=== PATIENT | female | born 1965 | race Caucasian/White ===

== ENCOUNTER → 2016-11-04 | Outpatient (CLI) | payer OTHER ==
[~2016-11-04] MED LIST: ASPIRIN EC81 MG PO; IBUPROFEN400 MG PO; LIPITOR TAB 2020 MG PO; LOPRESSOR 25 MG25 MG PO; SINGULAIR10 MG PO; SYNTHROID25 MCG PO; ZYRTEC10 MG PO
== END ==
LOC: LAB 10:16
DX: D64.9 Anemia, unspecified (principal); M25.561 Pain in right knee; M65.4 Radial styloid tenosynovitis [de Quervain]; E03.9 Hypothyroidism, unspecified
CPT/HCPCS: 36415; 82607; 82728; 82746; 83540; 83550

== ENCOUNTER → 2020-10-05 | Outpatient (CLI) | payer OTHER ==
[~2020-10-05] MED LIST changes: +ALEVE220 M1 PO; +ALLER-EASE180 MG PO; +AMLODIPINE BESYL5 MG PO; +CYCLOBENZAPRINE5 MG PO; +DICLOFENAC GEL TP; +DICLOFENAC SOD100 GM TP; +DOCUSATE SODIU250 MG PO; +ENDOCET 10-3251 EACH PO; +ENDOCET 7.5-321 EACH PO; +ESCITALOPRAM OX10 MG PO; +FLONASE 0.05% N16 GM; +IBUPROFEN800 MG PO; +IMDUR ER TAB 3030 MG PO; +MIRALAX17 GM PO; +MONTELUKAST SOD10 MG PO; +MUCINEX DM ER1 EAC1 PO; +NORVASC5 MG PO; +OMEPRAZOLE20 MG PO; +PERCOCET 7.5-31 EACH PO; +PROTONIX40 MG PO; +SERTRALINE HCL50 MG PO; +ZOFRAN4 MG PO; +[UNRECOGNIZED DRUG - OTHER] PO; +[UNRECOGNIZED DRUG - OTHER] PO
== END ==
LOC: KOH-I 14:42
DX: M79.672 Pain in left foot (principal)
CPT/HCPCS: 73610; 73630

== ENCOUNTER 2020-10-10 19:53 | Emergency (ER) | payer OTHER ==
[~2020-10-10 19:53] MED LIST changes: -AMLODIPINE BESYL5 MG PO; -CYCLOBENZAPRINE5 MG PO; -DICLOFENAC GEL TP; -ENDOCET 10-3251 EACH PO; -ENDOCET 7.5-321 EACH PO; -ESCITALOPRAM OX10 MG PO; -IBUPROFEN800 MG PO; -MONTELUKAST SOD10 MG PO
[2020-10-11] MEDS ORDERED: CYCLOBENZAPRINE5 MG PO (00:36)
[2020-10-11] MEDS ORDERED: IBUPROFEN800 MG PO (00:38)
[2020-12-02] MEDS ORDERED: AMLODIPINE BESYL5 MG PO (08:58)
[2020-12-02] MEDS ORDERED: PROTONIX40 MG PO (08:59)
[2020-12-02] MEDS ORDERED: ESCITALOPRAM OX10 MG PO (08:59)
[2020-12-02] MEDS ORDERED: MONTELUKAST SOD10 MG PO (09:00)
[2020-12-02] MEDS ORDERED: ASPIRIN EC81 MG PO (09:00)
[2020-12-02] MEDS ORDERED: IBUPROFEN800 MG PO (09:01)
[2020-12-02] MEDS ORDERED: DICLOFENAC GEL TP (09:03)
[2020-12-02] MEDS ORDERED: ENDOCET 10-3251 EACH PO (10:31)
[2020-12-02] MEDS ORDERED: ENDOCET 7.5-321 EACH PO (15:30)
== END 2020-10-11 01:10 | disposition home or self-care (01) ==
LOC: ER1 19:53
DX: S40.011A Contusion of right shoulder, initial encounter (principal); I10 Essential (primary) hypertension; Z90.710 Acquired absence of both cervix and uterus; X50.0XXA Overexertion from strenuous movement or load, initial encounter
CPT/HCPCS: 73030; 73060; 99283

== ENCOUNTER → 2020-10-14 | Outpatient (CLI) | payer OTHER ==
[~2020-10-14] MED LIST changes: +AMLODIPINE BESYL5 MG PO; +CYCLOBENZAPRINE5 MG PO; +DICLOFENAC GEL TP; +ENDOCET 10-3251 EACH PO; +ENDOCET 7.5-321 EACH PO; +ESCITALOPRAM OX10 MG PO; +IBUPROFEN800 MG PO; +MONTELUKAST SOD10 MG PO
== END ==
LOC: KOH-I 14:30
DX: S92.102A Unspecified fracture of left talus, initial encounter for closed fracture (principal); W17.89XA Other fall from one level to another, initial encounter
CPT/HCPCS: 73700

== ENCOUNTER → 2020-11-01 | Outpatient (CLI) | payer OTHER | LOC: KOH-I 08:00 | DX: M75.121 Complete rotator cuff tear or rupture of right shoulder, not specified as traumatic (principal) | CPT/HCPCS: 73221 ==

== ENCOUNTER → 2020-11-23 | Outpatient (CLI) | payer OTHER ==
[2020-11-23 11:34] LABS: HEMOGLOBIN 12.4 gm/dl (12.3-15.3); RED BLOOD COUNT 4.62 M/UL (4.00-5.10)
[2020-11-23 11:51] LABS: BUN/CREATININE RATIO 17 (0-10)
== END ==
LOC: OPSV2 10:30
PROVIDERS: Orthopaedic Surgery
DX: Z01.812 Encounter for preprocedural laboratory examination (principal); Z01.811 Encounter for preprocedural respiratory examination; Z01.810 Encounter for preprocedural cardiovascular examination; M75.101 Unspecified rotator cuff tear or rupture of right shoulder, not specified as traumatic
CPT/HCPCS: 36415; 71046; 80048; 85025; 93005

== ENCOUNTER → 2020-12-02 | Day surgery (SDC) | payer OTHER ==
[~2020-12-02] VITALS: Ht 160 cm; Wt 100.7 kg
== END | disposition home or self-care (01) ==
LOC: OR 08:05
DX: M75.111 Incomplete rotator cuff tear or rupture of right shoulder, not specified as traumatic (principal); I11.9 Hypertensive heart disease without heart failure; E07.9 Disorder of thyroid, unspecified; K21.9 Gastro-esophageal reflux disease without esophagitis; F41.9 Anxiety disorder, unspecified; M19.90 Unspecified osteoarthritis, unspecified site; E66.9 Obesity, unspecified; Z68.39 Body mass index [BMI] 39.0-39.9, adult; Z88.2 Allergy status to sulfonamides; Z88.6 Allergy status to analgesic agent; Z79.82 Long term (current) use of aspirin; Z79.1 Long term (current) use of non-steroidal anti-inflammatories (NSAID); Z79.899 Other long term (current) drug therapy
CPT/HCPCS: 97161; C1713; J0171; J0690; J1100; J2250; J2405; J2704; J2710; J2795; J3010; J7120

== ENCOUNTER → 2021-08-31 | Outpatient (CLI) | payer OTHER | LOC: EXRD 08:53 | DX: M79.645 Pain in left finger(s) (principal) | CPT/HCPCS: 73130 ==

== ENCOUNTER → 2021-10-18 | Outpatient (CLI) | payer OTHER | LOC: MAMO 10-10 13:00 | DX: Z12.31 Encounter for screening mammogram for malignant neoplasm of breast (principal) | CPT/HCPCS: 77063; 77067 ==

== ENCOUNTER → 2022-01-02 | Outpatient (CLI) | payer OTHER | LOC: EXRD 13:59 | DX: S09.92XA Unspecified injury of nose, initial encounter (principal) | CPT/HCPCS: 70160 ==